=== PATIENT | female | born 1960 | race Hispanic/Latino ===

== ENCOUNTER 2017-11-01 06:46 | Emergency (ER) | payer MEDICARE ==
[2017-11-01] MEDS ORDERED: DiphenhydrAMINE HCL 50 MG/ML VIAL ONE (07:53)
[2017-11-01] MEDS ORDERED: METHYLPREDNISOLONE SOD SUCC 40MG/ML 1ML ONE (07:53)
[2017-11-01] MEDS ORDERED: FAMOTIDINE 20MG TAB 20 MG TAB ONE (07:53)
== END 2017-11-01 08:26 | disposition left against medical advice (07) ==
LOC: EDH 06:46
DX: R21 Rash and other nonspecific skin eruption (principal); I10 Essential (primary) hypertension; F43.10 Post-traumatic stress disorder, unspecified; Z72.0 Tobacco use
CPT/HCPCS: 99281; J1200; J2920

== ENCOUNTER 2018-05-12 16:20 | Emergency (ER) | payer MEDICARE ==
[2018-05-12] MEDS ORDERED: NAPROXEN 500 MG TABLET ONE (17:23)
== END 2018-05-12 17:52 | disposition home or self-care (01) ==
LOC: EDH 16:20
DX: S02.5XXA Fracture of tooth (traumatic), initial encounter for closed fracture (principal); K02.9 Dental caries, unspecified; F41.9 Anxiety disorder, unspecified; F31.9 Bipolar disorder, unspecified; I10 Essential (primary) hypertension; I25.2 Old myocardial infarction; F43.10 Post-traumatic stress disorder, unspecified; Z72.0 Tobacco use; X58.XXXA Exposure to other specified factors, initial encounter; Y93.89 Activity, other specified; Y92.89 Other specified places as the place of occurrence of the external cause; Y99.8 Other external cause status

== ENCOUNTER 2018-06-28 13:32 | Emergency (ER) | payer OTHER, MEDICARE ==
[2018-06-28] MEDS ORDERED: ONDANSETRON HCL 4 MG/2 ML VIAL ONE (14:30)
[2018-06-28] MEDS ORDERED: SODIUM CHLORIDE 0.9% 1000ML 1,000 ML IV ONE (14:30)
[2018-06-28 14:31] LABS: BASOPHILS % (AUTO) 1.3 % (0.0-5.0); EOSINOPHILS % (AUTO) 1.4 % (0.0-8.0); HEMATOCRIT 47.4 % (36-48); LYMPHOCYTES % (AUTO) 29.3 % (21.0-51.0); MEAN CORPUSCULAR HEMOGLOBIN 28.9 pg (27.0-33.0); MEAN CORPUSCULAR HGB CONC 33.6 g/dL (32.0-36.0); MONOCYTES % (AUTO) 8.1 % (3.0-13.0); NEUTROPHILS % (AUTO) 59.9 % (40.0-77.0); NUCLEATED RED BLOOD CELLS 0.1 % (0.0-0.19); PLATELET COUNT (AUTO) 165 K/uL (130-400); RED BLOOD CELL COUNT(AUTO) 5.51 MIL/uL (4.00-5.50); RED CELL DISTRIBUTION WIDTH 14.8 % (11.0-15.5); WHITE BLOOD COUNT (AUTO) 7.1 K/uL (4.8-10.8)
[2018-06-28] MEDS ORDERED: MORPHINE SULFATE 8 MG/ML VIAL ONE (14:31)
[2018-06-28 14:43] LABS: APPEARANCE,URINE Clear (CLEAR); BILIRUBIN,URINE Negative (NEGATIVE); COLOR,URINE Yellow (YELLOW); GLUCOSE, URINE (UA) Negative (NEGATIVE); KETONES,URINE Negative (NEGATIVE); LEUKOCYTE ESTERASE ,URINE Large (NEGATIVE); NITRATE,URINE Negative (NEGATIVE); OCCULT BLOOD,URINE Nonhemolyzed Trace (NEGATIVE); PROTEIN,URINE Negative (NEGATIVE)
[2018-06-28 14:49] LABS: CREATININE 1.2 mg/dL (0.5-1.5); POTASSIUM 4.1 mmol/L (3.5-5.1)
[2018-06-28 14:54] LABS: ALBUMIN 4.3 g/dL (3.5-5.0); BILIRUBIN,TOTAL 0.3 mg/dL (0.2-1.0); TOTAL PROTEIN, SERUM 8.2 g/dL (6.0-8.3)
[2018-06-28 15:01] LABS: BACTERIA,URINE Few /HPF (None Seen); SQUAMOUS EPITHELIAL CELL,UR Few /HPF (0-2)
[2018-06-28] MEDS ORDERED: CEFTRIAXONE SODIUM 1 GM ONE (15:17)
== END 2018-06-28 15:48 | disposition home or self-care (01) ==
LOC: EDH 13:32
DX: N10 Acute pyelonephritis (principal); G89.29 Other chronic pain; M54.5 Low back pain; R51 Headache; I10 Essential (primary) hypertension; F41.9 Anxiety disorder, unspecified; F31.9 Bipolar disorder, unspecified; I25.2 Old myocardial infarction; F43.10 Post-traumatic stress disorder, unspecified; Z98.890 Other specified postprocedural states; Z72.0 Tobacco use
CPT/HCPCS: 36415; 80053; 81001; 83690; 84484; 85025; 93005; 96361; 96374; 96375; 99284; J0696; J2270; J2405; J7030

== ENCOUNTER 2018-11-21 10:34 | Emergency (ER) | payer OTHER, MEDICARE ==
[2018-11-21 10:54] LABS: APPEARANCE,URINE Clear (CLEAR); BILIRUBIN,URINE Negative (NEGATIVE); COLOR,URINE Yellow (YELLOW); GLUCOSE, URINE (UA) Negative (NEGATIVE); KETONES,URINE Negative (NEGATIVE); LEUKOCYTE ESTERASE ,URINE Large (NEGATIVE); NITRATE,URINE Negative (NEGATIVE); OCCULT BLOOD,URINE Large (NEGATIVE); PH,URINE 7.5 (5.0-8.0); PROTEIN,URINE Negative (NEGATIVE); UROBILINOGEN,URINE 0.2 mg/dL (0.2-1.0)
[2018-11-21 11:02] LABS: BACTERIA,URINE Rare /HPF (None Seen); RBC,URINE 0-1 /HPF (0-1); SQUAMOUS EPITHELIAL CELL,UR Few /HPF (0-2)
[2018-11-21 11:12] LABS: BASOPHILS % (AUTO) 0.8 % (0.0-5.0); EOSINOPHILS % (AUTO) 1.7 % (0.0-8.0); HEMATOCRIT 48.3 % (36-48); LYMPHOCYTES % (AUTO) 26.2 % (21.0-51.0); MEAN CORPUSCULAR HEMOGLOBIN 30.4 pg (27.0-33.0); MEAN CORPUSCULAR HGB CONC 34.8 g/dL (32.0-36.0); MEAN CORPUSCULAR VOLUME 87.4 fL (79-99); MONOCYTES % (AUTO) 9.3 % (3.0-13.0); NUCLEATED RED BLOOD CELLS 0.1 % (0.0-0.19); PLATELET COUNT (AUTO) 154 K/uL (130-400); RED BLOOD CELL COUNT(AUTO) 5.53 MIL/uL (4.00-5.50); RED CELL DISTRIBUTION WIDTH 13.8 % (11.0-15.5); WHITE BLOOD COUNT (AUTO) 6.9 K/uL (4.8-10.8)
[2018-11-21 11:28] LABS: CARBON DIOXIDE 29 mmol/L (21-32); CHLORIDE 98 mmol/L (101-111); CREATININE 1.2 mg/dL (0.5-1.5); GLOMERULAR FILTR. RATE CALC 49 mL/min (>60); GLUCOSE,RANDOM 82 mg/dL (70-105); POTASSIUM 4.1 mmol/L (3.5-5.1); SODIUM SERUM 135 mmol/L (136-145); UREA NITROGEN, BLOOD 23 mg/dL (7-18)
[2018-11-21 11:34] LABS: ACETAMINOPHEN 22 mcg/mL (10-30); ALANINE AMINOTRANSFERASE 20 U/L (12-78); ALBUMIN 4.1 g/dL (3.5-5.0); ALCOHOL, BLOOD < 3 mg/dL (0-10); ASPARTATE AMINOTRANSFERASE 17 U/L (10-37); BILIRUBIN,TOTAL 0.2 mg/dL (0.2-1.0); TOTAL PROTEIN, SERUM 8.4 g/dL (6.0-8.3)
[2018-11-21 11:36] LABS: SALICYLATE < 2.8 mg/dL (2.8-20.0)
[2018-11-21] MEDS ORDERED: CEFTRIAXONE SODIUM 1 GM ONE (11:53)
[2018-11-21] MEDS ORDERED: SODIUM CHLORIDE 0.9% 1000ML 1,000 ML IV ONE (11:53)
[2018-11-21] MEDS ORDERED: SODIUM CHLORIDE 0.9% 50 ML IV ONE (11:54)
[2018-11-21] MEDS ORDERED: AZITHROMYCIN 250 MG TABLET PO ONE ×2 (11:59→12:00)
[2018-11-21 12:16] LABS: AMPHET/METH SCREEN,URINE NEGATIVE (NEGATIVE); BARBITURATE SCREEN, URINE NEGATIVE (NEGATIVE); BENZODIAZEPINES SCREEN,URINE NEGATIVE (NEGATIVE); CANNABINOID SCREEN,URINE NEGATIVE (NEGATIVE); COCAINE SCREEN,URINE POSITIVE (NEGATIVE); OPIATE SCREEN,URINE NEGATIVE (NEGATIVE); PHENCYCLIDINE SCREEN,URINE NEGATIVE (NEGATIVE)
== END 2018-11-21 12:29 | disposition home or self-care (01) ==
LOC: EDH 10:34
DX: N39.0 Urinary tract infection, site not specified (principal); N72 Inflammatory disease of cervix uteri; I10 Essential (primary) hypertension; F41.9 Anxiety disorder, unspecified; F31.9 Bipolar disorder, unspecified; I25.2 Old myocardial infarction; F43.10 Post-traumatic stress disorder, unspecified; Z72.0 Tobacco use
CPT/HCPCS: 36415; 80053; 80305; 81001; 85025; 87486; 87797; 96374; 99284; G0480 ×2; G0481; J0696; J7030

== ENCOUNTER 2019-07-20 12:27 | Emergency (ER) | payer OTHER, MEDICARE ==
[2019-07-20] MEDS ORDERED: KETOROLAC TROMETHAMINE 60 MG/2 ML VIAL ONE (13:35)
[2019-07-20] MEDS ORDERED: LIDOCAINE 5% TOPICAL PATCH TP ONE (13:35)
[2019-07-20] MEDS ORDERED: DIAZEPAM 5 MG TABLET ONE (13:36)
== END 2019-07-20 14:47 | disposition home or self-care (01) ==
LOC: EDH 12:27
DX: M54.32 Sciatica, left side (principal); I10 Essential (primary) hypertension; I25.2 Old myocardial infarction; F41.9 Anxiety disorder, unspecified; F43.10 Post-traumatic stress disorder, unspecified; F32.9 Major depressive disorder, single episode, unspecified
CPT/HCPCS: 96372; 99283; J1885

== ENCOUNTER 2020-05-03 14:32 | Emergency (ER) | payer OTHER, MEDICARE ==
[2020-05-03] MEDS ORDERED: KETOROLAC TROMETHAMINE 60 MG/2 ML VIAL ONE (16:56)
== END 2020-05-03 17:02 | disposition home or self-care (01) ==
LOC: EDH 14:32
DX: M62.830 Muscle spasm of back (principal); I10 Essential (primary) hypertension; F32.9 Major depressive disorder, single episode, unspecified; F41.9 Anxiety disorder, unspecified; I25.2 Old myocardial infarction; F43.10 Post-traumatic stress disorder, unspecified; Z88.6 Allergy status to analgesic agent; Z72.0 Tobacco use; V49.59XA Passenger injured in collision with other motor vehicles in traffic accident, initial encounter; Y93.89 Activity, other specified; Y92.89 Other specified places as the place of occurrence of the external cause; Y99.8 Other external cause status
CPT/HCPCS: 96372; 99283; J1885

== ENCOUNTER 2020-05-21 13:33 | Inpatient (IN) | payer OTHER, MEDICARE ==
[~2020-05-21] VITALS: Ht 154.9 cm; Wt 88.5 kg
[~2020-05-21 13:33] MED LIST: SODIUM CHLORIDE 0.9% 1000ML 1,000 ML IV ONE
[2020-05-21] MEDS ORDERED: ASPIRIN 325 MG TABLET ONE (13:47)
[2020-05-21] MEDS ORDERED: NITROGLYCERIN 0.4 MG SL TAB SL ONE (13:47)
[2020-05-21 13:51] LABS: BASOPHILS % (AUTO) 0.5 % (0.0-5.0); EOSINOPHILS % (AUTO) 1.4 % (0.0-8.0); HEMATOCRIT 44.8 % (36-48); LYMPHOCYTES % (AUTO) 26.6 % (21.0-51.0); MEAN CORPUSCULAR HEMOGLOBIN 29.1 pg (27.0-33.0); MEAN CORPUSCULAR HGB CONC 34.2 g/dL (32.0-36.0); MEAN CORPUSCULAR VOLUME 85.2 fL (79-99); MONOCYTES % (AUTO) 7.3 % (3.0-13.0); PLATELET COUNT (AUTO) 167 K/uL (130-400); RED BLOOD CELL COUNT(AUTO) 5.26 MIL/uL (4.00-5.50); RED CELL DISTRIBUTION WIDTH 12.9 % (11.0-15.5); WHITE BLOOD COUNT (AUTO) 5.8 K/uL (4.8-10.8)
[2020-05-21 14:05] LABS: CREATININE 1.1 mg/dL (0.5-1.5); POTASSIUM 3.2 mmol/L (3.5-5.1)
[2020-05-21 14:10] LABS: ALBUMIN 3.8 g/dL (3.5-5.0); BILIRUBIN,TOTAL 0.3 mg/dL (0.2-1.0); TOTAL PROTEIN, SERUM 7.7 g/dL (6.0-8.3)
[2020-05-21 14:16] LABS: INR 0.96 (0.85-1.15); PARTIAL THROMBOPLASTIN TIME 26.2 SEC (26.3-35.5); PROTHROMBIN TIME 10.4 SEC (9.6-11.6)
[2020-05-21] MEDS ORDERED: ONDANSETRON HCL 4 MG/2 ML VIAL ONE (14:23)
[2020-05-21] MEDS ORDERED: MORPHINE SULFATE 4 MG/1ML SYG ONE (14:24)
[2020-05-21] MEDS ORDERED: HYDROMORPHONE HCL 0.5 MG/0.5 ML ML ONE ×2 (14:30→20:04)
[2020-05-21] MEDS ORDERED: KETOROLAC TROMETHAMINE 30MG/ML ONE (14:56)
[2020-05-21] MEDS ORDERED: POTASSIUM CHLORIDE 20MEQ/100ML 100 ML IV ONE ×2 (15:34→18:32)
[2020-05-21 15:57] LABS: TROPONIN I 0.19 ng/mL (0.00-0.06)
[2020-05-21] MEDS ORDERED: LIDOCAINE HCL 1% 20 ML VIAL ONE (17:19)
[2020-05-21] MEDS ORDERED: MORPHINE SULFATE 2 MG/ML 1ML SYG IV PRN (20:00)
[2020-05-21] MEDS ORDERED: ZOLPIDEM TARTRATE 5 MG TAB PO PRN (20:00)
[2020-05-21] MEDS ORDERED: HYDROMORPHONE HCL 0.5 MG/0.5 ML ML IVP ONE (20:00)
[2020-05-21] MEDS ORDERED: ZOLPIDEM TARTRATE 5 MG TAB ONE (20:04)
[2020-05-21] MEDS ORDERED: POTASSIUM CHLORIDE 10MEQ/100ML 100 ML IV PRN (20:30)
[2020-05-21] MEDS ORDERED: LIDOCAINE HCL-MPF 1% 2ML VIAL IV PRN (20:30)
[2020-05-21] MEDS ORDERED: POTASSIUM CHLORIDE 10% ELIXIR 20 MEQ/15 ML UDCUP PO PRN (20:30)
[2020-05-21] MEDS ORDERED: IOHEXOL 350 MG/ML 100ML INFUS..BTL IV ONE (20:45)
[2020-05-21] MEDS ORDERED: IOHEXOL-350 75 ML VIAL IV ONE ×2 (20:45→22:15)
[2020-05-21] MEDS ORDERED: IOHEXOL-350 50ML VIAL IV ONE (20:45)
[2020-05-21] MEDS ORDERED: NITROGLYCERIN 2 MG/VIAL VIAL IV ONE (20:45)
[2020-05-21] MEDS ORDERED: LIDOCAINE HCL 2% 20ML ONE (20:45)
[2020-05-21] MEDS ORDERED: HEPARIN SODIUM 1000UNIT/ML 10ML VIAL ONE (20:45)
[2020-05-21] MEDS ORDERED: NICARDIPINE HCL 25 MG/10 ML ML IV ONE (20:45)
[2020-05-21] MEDS ORDERED: SODIUM BICARB 50MEQ 50ML VIAL 50 ML ONE (20:47)
[2020-05-21] MEDS ORDERED: BIVALIRUDIN 250 MG/VIAL IV ONE (20:47)
[2020-05-21] MEDS ORDERED: MIDAZOLAM HCL 1 MG/ML 2ML VIAL ONE (20:52)
[2020-05-21] MEDS ORDERED: FENTANYL CITRATE PF 50 MCG/1 ML 2ML VIAL ONE (20:52)
[2020-05-21 20:58] LABS: HEMOGLOBIN A1C 5.8 % (4.0-6.0)
[2020-05-21 21:03] LABS: CHOLESTEROL 300 mg/dL (<200); TRIGLYCERIDES 251 mg/dL (30-200)
[2020-05-21 21:04] LABS: LDL DIRECT 182 mg/dL (0-99)
[2020-05-21 21:16] LABS: HDL CHOLESTEROL 53 mg/dL (35-85)
[2020-05-21] MEDS ORDERED: EPTIFIBATIDE 2 MG/ML 10 ML VIAL IVP ONE (21:42)
[2020-05-21] MEDS ORDERED: EPTIFIBATIDE 75MG/100ML BOTTLE 100 ML IV ONE (21:43)
[2020-05-21] MEDS ORDERED: ADENOSINE 3 MG/ML 2ML VIAL IV ONE ×3 (22:08→22:09)
[2020-05-21] MEDS ORDERED: TICAGRELOR 90 MG TABLET ONE (22:31)
[2020-05-21 23:12] VITALS: BP 142/93
[2020-05-21 23:15] VITALS: BP 155/68
[2020-05-21 23:30] VITALS: BP 137/75
[2020-05-21 23:45] VITALS: BP 122/79
[2020-05-21] MEDS ORDERED: LABETALOL HCL 200 MG TABLET PO SCH (23:45)
[2020-05-21] MEDS ORDERED: SODIUM CHLORIDE 0.9% 1000ML 1,000 ML IV SCH (23:45)
[2020-05-22] VITALS (33 sets, daily range): BP systolic 70–144; BP diastolic 28–82
[2020-05-22] MEDS ORDERED: SODIUM CHLORIDE 0.9% 1000ML 1,000 ML IV ONE (03:44)
[2020-05-22] MEDS: SODIUM CHLORIDE 0.9% 500ML 500 ML IV PRN (03:45)
[2020-05-22 03:52] LABS: BASOPHILS % (AUTO) 0.4 % (0.0-5.0); EOSINOPHILS % (AUTO) 0.8 % (0.0-8.0); HEMATOCRIT 42.8 % (36-48); LYMPHOCYTES % (AUTO) 26.7 % (21.0-51.0); MEAN CORPUSCULAR VOLUME 87.3 fL (79-99); NEUTROPHILS % (AUTO) 62.8 % (40.0-77.0); PLATELET COUNT (AUTO) 143 K/uL (130-400); RED CELL DISTRIBUTION WIDTH 13.2 % (11.0-15.5); WHITE BLOOD COUNT (AUTO) 7.1 K/uL (4.8-10.8)
[2020-05-22 04:27] LABS: BILIRUBIN,TOTAL 0.3 mg/dL (0.2-1.0); POTASSIUM 3.8 mmol/L (3.5-5.1); TOTAL PROTEIN, SERUM 6.1 g/dL (6.0-8.3)
[2020-05-22] MEDS ORDERED: DOPAMINE 800MG/D5 250ML 250 ML IV ONE (05:43)
[2020-05-22] MEDS ORDERED: DOPAMINE 800MG/D5 250ML 250 ML IV PRN (05:45)
[2020-05-22] MEDS: ACETAMINOPHEN 325 MG TAB PO PRN (05:47)
[2020-05-22] MEDS: ONDANSETRON HCL 4 MG/2 ML VIAL IV PRN (06:07)
[2020-05-22] MEDS: TICAGRELOR 90 MG TABLET PO SCH ×2 (08:19→21:38)
[2020-05-22] MEDS: FAMOTIDINE/PF 20 MG/2 ML VIAL IV SCH (08:19)
[2020-05-22] MEDS: ASPIRIN 81MG TAB.CHEW PO SCH (08:19)
[2020-05-22] MEDS: LABETALOL HCL 200 MG TABLET PO SCH ×2 (08:23→21:00)
[2020-05-22] MEDS ORDERED: ASPIRIN 81MG TAB.CHEW PO SCH (09:00)
[2020-05-22 10:49] LABS: HEMOGLOBIN A1C 6.1 % (4.0-6.0)
[2020-05-22 11:09] LABS: BASOPHILS % (AUTO) 0.4 % (0.0-5.0); EOSINOPHILS % (AUTO) 0.4 % (0.0-8.0); HEMATOCRIT 40.6 % (36-48); LYMPHOCYTES % (AUTO) 14.2 % (21.0-51.0); MEAN CORPUSCULAR HEMOGLOBIN 29.2 pg (27.0-33.0); MEAN CORPUSCULAR HGB CONC 33.5 g/dL (32.0-36.0); MEAN CORPUSCULAR VOLUME 87.1 fL (79-99); MONOCYTES % (AUTO) 6.1 % (3.0-13.0); NEUTROPHILS % (AUTO) 78.5 % (40.0-77.0); PLATELET COUNT (AUTO) 131 K/uL (130-400); RED BLOOD CELL COUNT(AUTO) 4.66 MIL/uL (4.00-5.50); RED CELL DISTRIBUTION WIDTH 12.9 % (11.0-15.5); WHITE BLOOD COUNT (AUTO) 8.2 K/uL (4.8-10.8)
[2020-05-22] MEDS: SODIUM CHLORIDE 0.9% 500ML 500 ML IV SCH ×2 (11:15→11:28)
[2020-05-22] MEDS: POTASSIUM CHLORIDE 20 MEQ ERTAB PO PRN (13:39)
[2020-05-22 16:19] LABS: THYROID STIMULATING HORMONE 0.55 uIU/mL (0.36-3.74)
[2020-05-22 20:14] LABS: APPEARANCE,URINE Clear (CLEAR); BILIRUBIN,URINE Negative (NEGATIVE); COLOR,URINE Yellow (YELLOW); GLUCOSE, URINE (UA) Negative (NEGATIVE); KETONES,URINE Negative (NEGATIVE); LEUKOCYTE ESTERASE ,URINE Trace (NEGATIVE); NITRATE,URINE Negative (NEGATIVE); OCCULT BLOOD,URINE Large (NEGATIVE); PH,URINE 6.5 (5.0-8.0); PROTEIN,URINE Negative (NEGATIVE)
[2020-05-22 20:31] LABS: BACTERIA,URINE Few /HPF (None Seen); SQUAMOUS EPITHELIAL CELL,UR 0-2 /HPF (0-2)
[2020-05-22] MEDS ORDERED: ATORVASTATIN CALCIUM 40 MG TABLET PO SCH (21:00)
[2020-05-22] MEDS: ATORVASTATIN CALCIUM 20 MG TABLET PO SCH (21:38)
[2020-05-23] VITALS (66 sets, daily range): BP systolic 67–140; BP diastolic 35–110
[2020-05-23] MEDS: ACETAMINOPHEN 325 MG TAB PO PRN ×2 (00:26→13:36)
[2020-05-23 04:26] LABS: BASOPHILS % (AUTO) 0.2 % (0.0-5.0); EOSINOPHILS % (AUTO) 0.5 % (0.0-8.0); HEMATOCRIT 39.1 % (36-48); LYMPHOCYTES % (AUTO) 21.7 % (21.0-51.0); MEAN CORPUSCULAR HEMOGLOBIN 28.5 pg (27.0-33.0); MEAN CORPUSCULAR VOLUME 86.5 fL (79-99); MONOCYTES % (AUTO) 12.4 % (3.0-13.0); NEUTROPHILS % (AUTO) 64.9 % (40.0-77.0); PLATELET COUNT (AUTO) 125 K/uL (130-400); RED BLOOD CELL COUNT(AUTO) 4.52 MIL/uL (4.00-5.50); RED CELL DISTRIBUTION WIDTH 13.3 % (11.0-15.5)
[2020-05-23 04:39] LABS: BILIRUBIN,TOTAL 0.6 mg/dL (0.2-1.0); POTASSIUM 3.6 mmol/L (3.5-5.1); TOTAL PROTEIN, SERUM 6.5 g/dL (6.0-8.3)
[2020-05-23] MEDS: SODIUM CHLORIDE 0.9% 500ML 500 ML IV PRN (05:24)
[2020-05-23] MEDS: DOPAMINE 800MG/D5 250ML 250 ML IV PRN ×3 (05:35→17:07)
[2020-05-23] MEDS ORDERED: PHENYLEPHRINE HCL 10 MG in SODIUM CHLORIDE 0.9% 250 ML IV PRN (06:15)
[2020-05-23] MEDS ORDERED: METHYLPREDNISOLONE SOD SUCC 125MG/2ML VIAL ONE (06:48)
[2020-05-23] MEDS: SODIUM CHLORIDE 0.9% 500ML 500 ML IV SCH ×2 (07:15→08:15)
[2020-05-23] MEDS ORDERED: METHYLPREDNISOLONE SOD SUCC 125MG/2ML VIAL IVP SCH (07:50)
[2020-05-23] MEDS: ASPIRIN 81MG TAB.CHEW PO SCH (07:57)
[2020-05-23] MEDS: POTASSIUM CHLORIDE 20 MEQ ERTAB PO PRN ×2 (07:57→13:29)
[2020-05-23] MEDS: FAMOTIDINE/PF 20 MG/2 ML VIAL IV SCH (07:58)
[2020-05-23] MEDS: TICAGRELOR 90 MG TABLET PO SCH ×2 (07:58→21:15)
[2020-05-23] MEDS: LABETALOL HCL 200 MG TABLET PO SCH ×2 (08:02→21:00)
[2020-05-23] MEDS: NICOTINE 21 MG/ 24 HR PATCH TD SCH (08:41)
[2020-05-23] MEDS ORDERED: MORPHINE SULFATE 2 MG/ML 1ML SYG ONE (14:08)
[2020-05-23] MEDS ORDERED: HYDROCORTISONE SOD SUCCINATE 100 MG/2 ML VIAL ONE (16:33)
[2020-05-23] MEDS: HYDROCORTISONE SOD SUCCINATE 100 MG/2 ML VIAL IV SCH ×2 (16:45→21:15)
[2020-05-23] MEDS: ONDANSETRON HCL 4 MG/2 ML VIAL IV PRN (17:39)
[2020-05-23] MEDS: SODIUM CHLORIDE 0.9% 1000ML 1,000 ML IV SCH (17:41)
[2020-05-23] MEDS ORDERED: HYDROCORTISONE SOD SUCCINATE 100 MG/2 ML VIAL IV SCH (21:00)
[2020-05-23] MEDS: ATORVASTATIN CALCIUM 20 MG TABLET PO SCH (21:15)
[2020-05-24] VITALS (36 sets, daily range): BP systolic 77–138; BP diastolic 36–72
[2020-05-24 02:08] LABS: APPEARANCE,URINE Clear (CLEAR); BILIRUBIN,URINE Negative (NEGATIVE); COLOR,URINE Yellow (YELLOW); GLUCOSE, URINE (UA) Negative (NEGATIVE); KETONES,URINE Negative (NEGATIVE); LEUKOCYTE ESTERASE ,URINE Negative (NEGATIVE); NITRATE,URINE Negative (NEGATIVE); OCCULT BLOOD,URINE Large (NEGATIVE); PROTEIN,URINE Negative (NEGATIVE)
[2020-05-24 02:20] LABS: BACTERIA,URINE Few /HPF (None Seen); RBC,URINE 51-100 /HPF (0-1); WBC,URINE 0-1 /HPF (0-1)
[2020-05-24 03:46] LABS: HEMATOCRIT 37.6 % (36-48); MEAN CORPUSCULAR HEMOGLOBIN 28.3 pg (27.0-33.0); MEAN CORPUSCULAR HGB CONC 32.7 g/dL (32.0-36.0); MEAN CORPUSCULAR VOLUME 86.6 fL (79-99); MONOCYTES % (AUTO) 7.7 % (3.0-13.0); PLATELET COUNT (AUTO) 117 K/uL (130-400); RED BLOOD CELL COUNT(AUTO) 4.34 MIL/uL (4.00-5.50); RED CELL DISTRIBUTION WIDTH 13.1 % (11.0-15.5); WHITE BLOOD COUNT (AUTO) 6.9 K/uL (4.8-10.8)
[2020-05-24 04:07] LABS: ALBUMIN 2.8 g/dL (3.5-5.0); BILIRUBIN,TOTAL 0.4 mg/dL (0.2-1.0); CREATININE 0.9 mg/dL (0.5-1.5); POTASSIUM 4.4 mmol/L (3.5-5.1); TOTAL PROTEIN, SERUM 6.6 g/dL (6.0-8.3)
[2020-05-24] MEDS: SODIUM CHLORIDE 0.9% 1000ML 1,000 ML IV SCH (05:25)
[2020-05-24] MEDS: HYDROCORTISONE SOD SUCCINATE 100 MG/2 ML VIAL IV SCH ×3 (05:26→20:34)
[2020-05-24] MEDS ORDERED: IOHEXOL-350 75 ML VIAL IV ONE (06:16)
[2020-05-24] MEDS: LABETALOL HCL 200 MG TABLET PO SCH (09:00)
[2020-05-24] MEDS: FAMOTIDINE/PF 20 MG/2 ML VIAL IV SCH (09:23)
[2020-05-24] MEDS: TICAGRELOR 90 MG TABLET PO SCH ×2 (09:24→20:33)
[2020-05-24] MEDS: PREDNISONE 20 MG TABLET PO SCH (09:24)
[2020-05-24] MEDS: ASPIRIN 81MG TAB.CHEW PO SCH (09:24)
[2020-05-24] MEDS: NICOTINE 21 MG/ 24 HR PATCH TD SCH ×2 (09:25→11:39)
[2020-05-24] MEDS: ACETAMINOPHEN 325 MG TAB PO PRN ×3 (09:32→23:48)
[2020-05-24] MEDS ORDERED: PANTOPRAZOLE SODIUM 40 MG TABLET.DR ONE (18:20)
[2020-05-24] MEDS ORDERED: CALCIUM CARBONATE 500 MG TABLET ONE (18:21)
[2020-05-24] MEDS: CALCIUM CARBON 500MG CHEW TAB PO SCH ×2 (18:30→23:47)
[2020-05-24] MEDS: PANTOPRAZOLE SODIUM 40 MG TABLET.DR PO SCH (18:30)
[2020-05-24] MEDS: ATORVASTATIN CALCIUM 20 MG TABLET PO SCH (20:34)
[2020-05-25 04:00] VITALS: BP 130/75
[2020-05-25 04:04] LABS: LYMPHOCYTES % (AUTO) 13.2 % (21.0-51.0); MEAN CORPUSCULAR HEMOGLOBIN 28.6 pg (27.0-33.0); MEAN CORPUSCULAR HGB CONC 32.3 g/dL (32.0-36.0); MEAN CORPUSCULAR VOLUME 88.4 fL (79-99); MONOCYTES % (AUTO) 5.2 % (3.0-13.0); NEUTROPHILS % (AUTO) 81.1 % (40.0-77.0); PLATELET COUNT (AUTO) 161 K/uL (130-400); RED BLOOD CELL COUNT(AUTO) 4.41 MIL/uL (4.00-5.50); RED CELL DISTRIBUTION WIDTH 13.7 % (11.0-15.5)
[2020-05-25 04:32] LABS: ALBUMIN 2.9 g/dL (3.5-5.0); BILIRUBIN,TOTAL 0.3 mg/dL (0.2-1.0); CREATININE 1.1 mg/dL (0.5-1.5); MAGNESIUM 1.9 mg/dL (1.80-2.40); PHOSPHORUS 3.8 mg/dL (2.5-4.9); POTASSIUM 4.5 mmol/L (3.5-5.1); TOTAL PROTEIN, SERUM 6.9 g/dL (6.0-8.3)
[2020-05-25] MEDS: HYDROCORTISONE SOD SUCCINATE 100 MG/2 ML VIAL IV SCH ×3 (05:28→22:48)
[2020-05-25] MEDS: CALCIUM CARBON 500MG CHEW TAB PO SCH ×3 (05:28→18:47)
[2020-05-25 08:00] VITALS: BP 106/62
[2020-05-25] MEDS: FAMOTIDINE/PF 20 MG/2 ML VIAL IV SCH (08:07)
[2020-05-25] MEDS: NICOTINE 21 MG/ 24 HR PATCH TD SCH (08:07)
[2020-05-25] MEDS: ACETAMINOPHEN 325 MG TAB PO PRN ×2 (08:08→18:04)
[2020-05-25] MEDS: PREDNISONE 20 MG TABLET PO SCH (08:08)
[2020-05-25] MEDS: TICAGRELOR 90 MG TABLET PO SCH ×2 (08:08→20:44)
[2020-05-25] MEDS: ASPIRIN 81MG TAB.CHEW PO SCH (08:08)
[2020-05-25] MEDS: PANTOPRAZOLE SODIUM 40 MG TABLET.DR PO SCH (08:09)
[2020-05-25] MEDS ORDERED: ALPRAZOLAM 0.5 MG TABLET PO SCH (11:00)
[2020-05-25] MEDS ORDERED: ALPRAZOLAM 0.5 MG TABLET ONE (11:02)
[2020-05-25 12:00] VITALS: BP_SYST 106; BP_SYST 122; BP_DIAS 62; BP_DIAS 73
[2020-05-25 15:30] VITALS: BP 121/59
[2020-05-25 17:47] VITALS: BP 124/69
[2020-05-25 20:00] VITALS: BP 128/67
[2020-05-25] MEDS: ALPRAZOLAM 0.5 MG TABLET PO PRN (20:44)
[2020-05-25] MEDS: ATORVASTATIN CALCIUM 20 MG TABLET PO SCH (20:44)
[2020-05-25] MEDS: TEMAZEPAM 15 MG CAPSULE PO ONE ×2 (22:15→22:48)
[2020-05-26] VITALS: BP 110/67
[2020-05-26 04:08] VITALS: BP 125/73
[2020-05-26 05:31] LABS: HEMATOCRIT 39.1 % (36-48); MEAN CORPUSCULAR HEMOGLOBIN 28.5 pg (27.0-33.0); MEAN CORPUSCULAR HGB CONC 32.5 g/dL (32.0-36.0); MEAN CORPUSCULAR VOLUME 87.9 fL (79-99); RED BLOOD CELL COUNT(AUTO) 4.45 MIL/uL (4.00-5.50); RED CELL DISTRIBUTION WIDTH 13.5 % (11.0-15.5); WHITE BLOOD COUNT (AUTO) 5.5 K/uL (4.8-10.8)
[2020-05-26] MEDS: CALCIUM CARBON 500MG CHEW TAB PO SCH ×3 (05:45→18:00)
[2020-05-26] MEDS: HYDROCORTISONE SOD SUCCINATE 100 MG/2 ML VIAL IV SCH ×3 (05:45→21:31)
[2020-05-26 05:51] LABS: CREATININE 1.2 mg/dL (0.5-1.5); MAGNESIUM 1.7 mg/dL (1.80-2.40); POTASSIUM 3.7 mmol/L (3.5-5.1)
[2020-05-26 07:00] VITALS: BP 118/71
[2020-05-26] MEDS: PANTOPRAZOLE SODIUM 40 MG TABLET.DR PO SCH (08:49)
[2020-05-26] MEDS: ASPIRIN 81MG TAB.CHEW PO SCH (08:49)
[2020-05-26] MEDS: PREDNISONE 20 MG TABLET PO SCH (08:50)
[2020-05-26] MEDS: ALPRAZOLAM 0.5 MG TABLET PO PRN ×2 (08:51→18:04)
[2020-05-26] MEDS: FAMOTIDINE/PF 20 MG/2 ML VIAL IV SCH (08:51)
[2020-05-26] MEDS: TICAGRELOR 90 MG TABLET PO SCH ×2 (08:51→20:53)
[2020-05-26] MEDS: NICOTINE 21 MG/ 24 HR PATCH TD SCH (08:51)
[2020-05-26 11:00] VITALS: BP 93/60
[2020-05-26 15:00] VITALS: BP 125/65
[2020-05-26 20:21] VITALS: BP 112/70
[2020-05-26] MEDS: ATORVASTATIN CALCIUM 20 MG TABLET PO SCH (20:53)
[2020-05-26] MEDS ORDERED: TEMAZEPAM 7.5 MG CAPSULE PO ONE (21:00)
[2020-05-27] VITALS (21 sets, daily range): BP systolic 104–125; BP diastolic 54–76
[2020-05-27] MEDS: CALCIUM CARBON 500MG CHEW TAB PO SCH ×4 (04:49→17:46)
[2020-05-27] MEDS: NITROGLYCERIN 0.4 MG SL TAB SL PRN ×2 (04:54→05:01)
[2020-05-27] MEDS: HYDROCORTISONE SOD SUCCINATE 100 MG/2 ML VIAL IV SCH ×3 (05:28→16:21)
[2020-05-27] MEDS: TICAGRELOR 90 MG TABLET PO SCH ×2 (08:10→20:25)
[2020-05-27] MEDS: PANTOPRAZOLE SODIUM 40 MG TABLET.DR PO SCH (08:10)
[2020-05-27] MEDS: NICOTINE 21 MG/ 24 HR PATCH TD SCH (08:11)
[2020-05-27] MEDS: ASPIRIN 81MG TAB.CHEW PO SCH (08:16)
[2020-05-27] MEDS: PREDNISONE 20 MG TABLET PO SCH (08:16)
[2020-05-27] MEDS: SODIUM CHLORIDE 0.9% 1000ML 1,000 ML IV SCH ×2 (11:18→14:38)
[2020-05-27] MEDS ORDERED: ETOMIDATE 2 MG/ML 10 ML VIAL ONE (12:22)
[2020-05-27] MEDS ORDERED: FENTANYL CITRATE PF 50 MCG/1 ML 2ML VIAL ONE ×2 (12:22→12:44)
[2020-05-27] MEDS ORDERED: GLYCOPYRROLATE 1 MG/5 ML SYRINGE ONE (12:23)
[2020-05-27] MEDS ORDERED: NEOSTIGMINE 5MG/5ML SYR IV ONE (12:23)
[2020-05-27] MEDS ORDERED: ROCURONIUM 10MG/1ML SYR 10 MG/ML ML ONE (12:23)
[2020-05-27] MEDS ORDERED: ONDANSETRON HCL 4 MG/2 ML VIAL ONE (12:23)
[2020-05-27] MEDS ORDERED: NOREPINEPHRINE BITARTRATE 1 MG/1 ML ML IV ONE (12:28)
[2020-05-27] MEDS ORDERED: SODIUM BICARB 50MEQ 50ML VIAL 50 ML ONE (12:41)
[2020-05-27] MEDS ORDERED: NITROGLYCERIN 2 MG/VIAL VIAL IV ONE (12:41)
[2020-05-27] MEDS ORDERED: LIDOCAINE HCL 2% 20ML ONE (12:41)
[2020-05-27] MEDS ORDERED: IOHEXOL 350 MG/ML 100ML INFUS..BTL IV ONE (12:41)
[2020-05-27] MEDS ORDERED: BIVALIRUDIN 250 MG/VIAL IV ONE (12:41)
[2020-05-27] MEDS ORDERED: HEPARIN SODIUM 1000UNIT/ML 10ML VIAL ONE (12:41)
[2020-05-27] MEDS: ATORVASTATIN CALCIUM 20 MG TABLET PO SCH (20:24)
[2020-05-27] MEDS: ALPRAZOLAM 0.5 MG TABLET PO PRN (20:24)
[2020-05-28 00:03] VITALS: BP 99/61
[2020-05-28] MEDS: CALCIUM CARBON 500MG CHEW TAB PO SCH ×3 (00:52→11:22)
[2020-05-28] MEDS: HYDROCORTISONE SOD SUCCINATE 100 MG/2 ML VIAL IV SCH ×2 (00:52→06:18)
[2020-05-28] MEDS: ALPRAZOLAM 0.5 MG TABLET PO PRN (03:07)
[2020-05-28 04:17] VITALS: BP 107/66
[2020-05-28 05:32] LABS: BASOPHILS % (AUTO) 0.2 % (0.0-5.0); EOSINOPHILS % (AUTO) 1.5 % (0.0-8.0); HEMATOCRIT 40.6 % (36-48); LYMPHOCYTES % (AUTO) 19.9 % (21.0-51.0); MEAN CORPUSCULAR HEMOGLOBIN 28.3 pg (27.0-33.0); MEAN CORPUSCULAR VOLUME 88.5 fL (79-99); MONOCYTES % (AUTO) 7.9 % (3.0-13.0); NEUTROPHILS % (AUTO) 69.6 % (40.0-77.0); PLATELET COUNT (AUTO) 141 K/uL (130-400); RED BLOOD CELL COUNT(AUTO) 4.59 MIL/uL (4.00-5.50); RED CELL DISTRIBUTION WIDTH 13.8 % (11.0-15.5); WHITE BLOOD COUNT (AUTO) 6.6 K/uL (4.8-10.8)
[2020-05-28 05:49] LABS: CREATININE 0.9 mg/dL (0.5-1.5); MAGNESIUM 1.7 mg/dL (1.80-2.40); POTASSIUM 3.8 mmol/L (3.5-5.1)
[2020-05-28] MEDS: SODIUM CHLORIDE 0.9% 1000ML 1,000 ML IV SCH (07:00)
[2020-05-28 08:00] VITALS: BP 99/54
[2020-05-28] MEDS: PREDNISONE 20 MG TABLET PO SCH (08:09)
[2020-05-28] MEDS: TICAGRELOR 90 MG TABLET PO SCH (08:09)
[2020-05-28] MEDS: PANTOPRAZOLE SODIUM 40 MG TABLET.DR PO SCH (08:09)
[2020-05-28] MEDS: ASPIRIN 81MG TAB.CHEW PO SCH (08:09)
[2020-05-28] MEDS: NICOTINE 21 MG/ 24 HR PATCH TD SCH (08:09)
[2020-05-28] MEDS ORDERED: HYDROCORTISONE 20 MG TABLET PO SCH ×2 (09:00→17:00)
[2020-05-28] MEDS ORDERED: TICA90TA PO (09:37)
[2020-05-28] MEDS ORDERED: ATOR10 PO (10:26)
[2020-05-28] MEDS ORDERED: MAGNESIUM 2GM PREMIX 50ML 50 ML IV PRN (10:30)
[2020-05-28 12:05] VITALS: BP 117/82
== END 2020-05-28 12:40 | disposition home or self-care (01) | DRG 246 ==
LOC: EDH 13:33 → EDHIP 18:45 → 2DH 23:22 → 4DH 05-25 15:51
PROVIDERS: ADMIT Hospitalist; ATTEND Hospitalist
PROC: B2151ZZ Fluoroscopy of Left Heart using Low Osmolar Contrast (ICD-10-PCS; 2020-05-21)
PROC: B2111ZZ Fluoroscopy of Multiple Coronary Arteries using Low Osmolar Contrast (ICD-10-PCS; 2020-05-21)
PROC: 4A023N7 Measurement of Cardiac Sampling and Pressure, Left Heart, Percutaneous Approach (ICD-10-PCS; 2020-05-21)
PROC: 027034Z Dilation of Coronary Artery, One Artery with Drug-eluting Intraluminal Device, Percutaneous Approach (ICD-10-PCS; 2020-05-21)
PROC: 0270356 Dilation of Coronary Artery, One Artery, Bifurcation, with Two Drug-eluting Intraluminal Devices, Percutaneous Approach (ICD-10-PCS; principal; 2020-05-27)
PROC: B2111ZZ Fluoroscopy of Multiple Coronary Arteries using Low Osmolar Contrast (ICD-10-PCS; 2020-05-27)
DX: I21.4 Non-ST elevation (NSTEMI) myocardial infarction (principal); I50.33 Acute on chronic diastolic (congestive) heart failure; E27.40 Unspecified adrenocortical insufficiency; E87.1 Hypo-osmolality and hyponatremia; F17.200 Nicotine dependence, unspecified, uncomplicated; F43.10 Post-traumatic stress disorder, unspecified; E66.9 Obesity, unspecified; Z68.37 Body mass index [BMI] 37.0-37.9, adult; E78.5 Hyperlipidemia, unspecified; E87.6 Hypokalemia; F31.9 Bipolar disorder, unspecified; I25.10 Atherosclerotic heart disease of native coronary artery without angina pectoris; I25.2 Old myocardial infarction; J44.9 Chronic obstructive pulmonary disease, unspecified; K21.9 Gastro-esophageal reflux disease without esophagitis; Z88.5 Allergy status to narcotic agent; Z95.5 Presence of coronary angioplasty implant and graft; I95.9 Hypotension, unspecified; I11.0 Hypertensive heart disease with heart failure
CPT/HCPCS: 36415; 71045; 74178; 76700; 80048; 80053; 80061; 81001; 82533; 82550; 82627; 82948; 83036; 83605; 83735; 83874; 83880; 84100; 84132; 84145; 84439; 84443; 84481; 84484; 85025; 85027; 85347; 85378; 85610; 85730; 87040; 87088; 93005; 93306; 93356; 93458; 99156; 99157; C1760; C1769; C1887; C1894; C9600; C9601; C9606; G0378; J0153; J0583; J1170; J1265; J1327; J1644; J1720; J1885; J2250; J2270; J2405; J2710; J2930; J3010; J3475; J3480; J3490; J7030; J7040; Q9967